=== PATIENT | female | born 2005 | race Caucasian/White ===

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

== ENCOUNTER 2025-10-27 04:57 | Inpatient (IN) | payer OTHER, BC, MEDICAID, SELFPAY ==
[2025-10-27] VITALS (137 sets, daily range): BP systolic 92–150; BP diastolic 51–110; PULSE 50–250; RESP 15–16; TEMP 36.4–36.8; O2SAT 96–100; BMI 29.0
--- NOTE | 2025-10-27 05:19 | LDADM ---
This patient, Loretta Kimbrough, was admitted to Labor/Delivery/Recovery 108 on 10/27/25 at 04:57. Plans for labor, pain management and were discussed with patient. Patient/family oriented to hospital policies and general routines including ID bracelet, bed and alarms, visiting hours, pain management, procedures, bathroom and other care routines, personal items, smoking policy, room service/diet and guest tray routines, security routines, and visiting hours. Patient/Family are encouraged to report perceived risks to care and to ask questions if they do not understand what they are told or what they should do. See OBIX for further documentation.
[2025-10-27 05:36] LABS: Hematocrit 36.0 % (37.0-47.0); Hemoglobin 12.6 g/dL (12.0-15.0); Immature Granulocyte Percent A 0.7 % (0-0.5); Lymphocytes Absolute Auto 2.28 K/mm3 (0.9-3.2); Mean Corpuscular HGB Conc 35.0 g/dl (32-36); Mean Corpuscular Hemoglobin 33.2 pg (26-34); Mean Corpuscular Volume 94.7 fl (80-100); Nucleated Red Blood Cells Absolute Auto 0.000 K/mm3 (0.0-0.012); Nucleated Red Blood Cells Perc 0.0 % (0.0-0.2); Platelet Count Result 230 k/mm3 (150-375); Red Blood Count 3.80 M/mm3 (4.2-5.4); White Blood Count 11.0 K/mm3 (4.5-10.0)
[2025-10-27] MEDS: LACTATED RINGERS 1,000 ML 125 ML IV CONT ×2 (05:45→10:09)
[2025-10-27] MEDS: AMPICILLIN SODIUM 2 GM in SODIUM CHLORIDE 0.9% IV 100 ML 200 ML IVPB (05:45)
[2025-10-27] MEDS: OXYTOCIN 30 UNITS/NS 500 ML 30 UNITS/500 ML BAG IV CONT (05:48)
[2025-10-27 06:48] LABS: HIV 1/2 Ab P24 Ag Result Negative (Negative)
[2025-10-27 07:53] LABS: Syphilis IgG/IgM Antibody Non-Reactive (Nonreactive)
--- NOTE | 2025-10-27 08:10 | WPDOBADMIT ---
Obstetrics - Admit Note Admission Note: record reviewed. No pertinent additions to the history and/or any subsequent changes in the physical findings that are not consistent with the expected course of the were found. Additions to the history and/or subsequent changes in the physical findings follow. Admit to labor sve 2.5/70/-2 AROM clear fluid
[2025-10-27] MEDS: AMPICILLIN SODIUM 1 GM in SODIUM CHLORIDE 0.9% IV 50 ML 100 ML IVPB (10:32)
[2025-10-27] MEDS: FAMOTIDINE 20 MG/2 ML VIAL IV PUSH (12:02)
--- NOTE | 2025-10-27 13:31 | PM.OBPRVD ---
OB - Vaginal Delivery Note Procedure Delivery date: 10/27/25 Induction method: AROM and Per Pitocin Protocol Delivery monitor: External FHT and External Uterine Route of delivery: Episiotomy description: None Laceration Description: None Specimen: No Quantitative Blood Loss (ml): 50 Anesthesia type: Epidural Disposition: Floor Complications: No immediate complications [place] Baby Date of : 10/27/25 Time of : 13:25 Gestational Age by Date: 39 gender: Female presentation: vertex position: Right Occiput Anterior Placenta delivery description: Expressed Cord Vessel Description: 3 Vessels, Nuchal Cord and Around Body (x1) score one minute: 7 score five minutes: 9
[2025-10-27] MEDS: OXYTOCIN 30 UNITS/NS 500 ML 30 UNITS/500 ML BAG 125 UNITS IV CONT (13:57)
[2025-10-28 05:17] LABS: Hematocrit 39.4 % (37.0-47.0); Hemoglobin 13.6 g/dL (12.0-15.0)
[2025-10-28 07:45] VITALS: BP 112/63; PULSE 65; RESP 12; TEMP 36.6; O2SAT 99
--- NOTE | 2025-10-28 08:42 | P.PNOB_ITS ---
OB - PN: Subj Subjective Date/time seen: 10/28/25 08:42 Patient comments: no complaints, pain well controlled, incisional pain, tolerating diet and flatus present OB - PN: Obj Data Labs 10/28/25 04:13 Labs: Laboratory Results - last 24 hr 10/28/25 04:13 Hgb 13.6 Hct 39.4 OB - PN A/P Plan day: 1 Plan: routine care Comments: No problems, routine care Time Spent With Patient Time: Total time spent is greater than 50% in coordination of care (as documented) at patient's floor/unit and/or counseling patient: Exam 2 Const: General: comfortable, no acute distress and alert Resp: Effort & Inspection: normal respiratory effort Auscultation: no crackles, no rales and no rhonchi Cardio: Rate: regular rate Heart sounds: no click, no murmurs and no rubs GI: Inspection: non-distended GI Palp: No Tenderness to palpation present (GI) Auscultation: normal bowel sounds Other: Incision - CDI Extrem: General: normal to inspection, no pedal edema and no calf tenderness
[2025-10-28 11:10] VITALS: BP 111/66; PULSE 60; RESP 12; TEMP 36.7; O2SAT 100
--- NOTE | 2025-10-28 14:10 | WPDANLDPN2 ---
Anes-Prog Note L&D Date/Time: 10/28/25 14:10 Comfortable throughout: labor and delivery Neuraxial method: epidural Epidural/Spinal procedure site: clean & non-tender Neuro status: Neuro function grossly intact. Cardiovascular status: normal Respiratory status: normal Airway patency: baseline Mental status: baseline Post-Op hydration status: normal Vital Signs: Last Vital Signs Temp 36.7 C 10/28/25 11:10 Pulse 60 10/28/25 11:10 Resp 12 10/28/25 11:10 BP 111/66 10/28/25 11:10 Pulse Ox 100 10/28/25 11:10 O2 Del Method Room Air 10/28/25 07:45 Pain score (VAS): 11/20 I/O: Intake & Output 10/27/25 10/28/25 10/28/25 23:59 07:59 15:59 Intake Total 0 Output Total 470 Balance -470 0 Post-procedural complaints: none Patient feedback: Patient satisfied with anesthetic care.
[2025-10-29 10:06] VITALS: BP 126/82; PULSE 100; RESP 18; TEMP 36.8; O2SAT 100
--- NOTE | 2025-10-29 18:24 | P.DS_ITS ---
DS: Admitting Diagnosis Discharge Date 10/28/25 Admitting Diagnosis IOL DS: Discharge Diagnosis Discharge Diagnosis (1) Vaginal delivery: Code(s): O80 - Encounter for full-term uncomplicated delivery Status: Acute OB - DS: Summary OB Procedures : None OB Procedures Intrapartum: Spontaneous Vag Delivery OB Procedures: : None Peripartum Data Laceration Description: None Episiotomy description: None Time Spent with Patient Time attestation: Total time spent providing and/or coordinating discharge services: Discharge Plan Discharge Consulting providers: Diana Ordonez Sherri M. Discharging Clinician: Brennen Small Patient Disposition: Home Activity: pelvic rest Diet: regular Discharge Instructions: Education: Mom and Baby Guide Given to: Mother Follow-Up: Call your delivering provider's office for an appointment to be seen in: Call for appointment Mom and baby should come to [facility] for the follow-up appointment. Appointment Date/Time: October 29, 2025 at 9:00 am What to expect at your follow-up visit: Blood Pressure Check Physical Assessment Call [phone] if you are unable to keep your appointment time. BREAST CARE: * Wear a snug supportive bra. * For engorgement discomfort: Bottle Feeding: * May apply ice packs PERINEAL CARE: * Until bleeding stops, use your jun bottle after urinating * Change your pad frequently throughout the day * You may take sitz baths several times a day (fill your bathtub with warm water and soak for 20 minutes.) Do NOT bathe in the water * No tub baths until seen by your physician - You may shower ACTIVITY: * Rest as much as possible. * Do not exercise or lift anything heavier than your baby (such as laundry or other children.) * Avoid stairs or driving as much as possible. * Do not put anything into the vagina. No douching, tampons, or sexual activity until seen by physician. NOTIFY PHYSICIAN IF YOU HAVE ANY QUESTIONS OR IF ANY OF THE FOLLOWING SYMPTOMS OCCUR: * If your vaginal bleeding becomes foul smelling. * If your vaginal bleeding becomes more heavy than a period or if your bleeding changes from pink to bright red. However, you may pass an occasional walnut- sized clot once or twice for the first week . * If you experience a sharp, shooting pain in your calves. * If you discover a hard, reddened area on your breast or if you experience flu- like symptoms. DIET: * Eat regular, well-balanced meals. * Drink plenty of fluids daily. Patient Language: Spanish Stand Alone Forms: General Discharge Information Follow-up/Referrals: Brennen Small MD [Physician, NUCLEAR MEDICINE CHIEF TECHNOLOGIST] Discharge Medications: Continued prenat.vits,ella,gdf-aikj-ilkal Tablet 1 tablet PO DAILY Date of admission: 10/27/25 04:57 Primary Care Provider: PHYSICIAN,INDOOR PLANT TECHNICIAN Admitting Provider: Brennen Small Attending physician on admission: Brennen Small Condition: Stable
== END 2025-10-28 18:14 | disposition home or self-care (01) | DRG 807 ==
LOC: ANHLDR 05:10 → ANHOB2 10-28 08:42 → ANHLDR 10-29 10:02 → ANHOB2 10-29 10:02
PROVIDERS: Advanced Practice Midwife; Admitting Provider Obstetrics & Gynecology; Visit Provider Obstetrics & Gynecology
DX: O99.824 Streptococcus B carrier state complicating childbirth (principal); Z37.0 Single live birth; Z3A.39 39 weeks gestation of pregnancy; O69.82X0 Labor and delivery complicated by other cord entanglement, without compression, not applicable or unspecified; O62.3 Precipitate labor
CPT/HCPCS: 36415; 85014; 85018; 85025; 86593; 86703; 86850; 86900; 86901; A9270; G0432; J0290; J2590; J2795; J7120